=== PATIENT | female | born 1990 | race Caucasian/White ===

== ENCOUNTER → 2021-05-08 | Outpatient (CLI) | payer OTHER ==
[2021-05-10 17:12] LABS: HPV 16 Negative (Negative); HPV 18 Negative (Negative); HPV OTHER HR TYPES Negative (Negative)
== END | disposition home or self-care (01) ==
LOC: LAB SHORT 17:10
PROVIDERS: Obstetrics & Gynecology
DX: Z01.419 Encounter for gynecological examination (general) (routine) without abnormal findings (principal)
CPT/HCPCS: 87624; G0123

== ENCOUNTER 2023-02-05 20:33 | Observation (INO) | payer BC, OTHER ==
[~2023-02-05] VITALS: Ht 157.5 cm; Wt 49.9 kg
[2023-02-05 21:08] LABS: BASOPHILS ABSOLUTE AUTO 0.04 K/mm3 (0.00-0.23); BASOPHILS PERCENT AUTO 0 % (0-2); EOSINOPHILS ABSOLUTE AUTO 0.27 K/mm3 (0.00-0.68); EOSINOPHILS PERCENT AUTO 3 % (0-6); Hematocrit 35.5 % (33.0-51.0); Hemoglobin 12.9 g/dL (11.5-16.0); IMMATURE GRAN ABSOLUTE AUTO 0.03 K/mm3 (0.00-0.10); IMMATURE GRAN PERCENT AUTO 0 % (0-1); LYMPHOCYTES ABSOLUTE AUTO 1.61 K/mm3 (0.84-5.20); LYMPHOCYTES PERCENT AUTO 16 % (21-46); MONOCYTES ABSOLUTE AUTO 0.44 K/mm3 (0.16-1.47); MONOCYTES PERCENT AUTO 4 % (4-13); Mean Corpuscular HGB 30.4 pg (26.0-34.0); Mean Corpuscular HGB Conc 36.3 g/dL (31.5-36.5); Mean Corpuscular Volume 84 fL (80-100); Mean Platelet Volume 9.9 fL (9.1-12.4); NEUTROPHILS ABSOLUTE AUTO 8.02 K/mm3 (1.96-9.15); NEUTROPHILS PERCENT AUTO 77 % (41-73); Platelet Count 251 K/mm3 (150-400); RDW Coefficient Variation 11.9 % (11.7-14.2); Red Blood Cell Count 4.25 M/mm3 (3.80-5.20); White Blood Cell Count 10.41 K/mm3 (4.00-11.30)
[2023-02-05 21:23] LABS: Alanine Aminotransfer (ALT/SGP 18 U/L (12-78); Albumin, Blood 3.9 g/dL (3.4-5.0); Albumin/Globulin Ratio 1.1 (0.8-1.8); Alk Phos 64 U/L (50-136); Anion Gap 4 mmol/L (6-16); Aspartate Aminotrans (AST/SGOT 11 U/L (12-37); Bilirubin, Total 1.2 mg/dL (0.1-1.0); Blood Urea Nitrogen 10 mg/dL (8-24); Bun/Creatinine Ratio 12.4 (12.0-20.0); CO2, Blood 26 mmol/L (21-32); Calcium, Blood 8.5 mg/dL (8.5-10.1); Chloride, Blood 109 mmol/L (98-108); Creatinine, Blood 0.81 mg/dL (0.40-1.00); Globulin, Blood 3.6 g/dL (2.2-4.0); Glomerular Filtration Rate 98 (60-); Glucose, Blood 117 mg/dL (70-99); Potassium, Blood 4.6 mmol/L (3.5-5.5); Sodium, Blood 139 mmol/L (136-145); Total Protein, Blood 7.5 g/dL (6.4-8.2)
[2023-02-05 23:33] LABS: Source, Urine Clean Catch
[2023-02-05 23:41] LABS: Bilirubin, Urine Neg (Neg); Blood, Urine 5+ (Neg); Glucose Qualitative, Urine Neg (Neg); Ketones, Urine 1+ (Neg); Leukocyte Esterase, Urine 2+ (Neg); Nitrite, Urine Neg (Neg); Protein, Urine 2+ (Neg); Urobilinogen, Urine NORM (Normal)
[2023-02-05 23:44] LABS: Beta HCG, Quantitative, Serum <1 mIU/mL (0-3)
[2023-02-05 23:48] LABS: Appearance, Urine Turbid (Clear); Color, Urine Amber (P-Yellow)
[2023-02-05 23:51] LABS: Bacteria Mod /hpf; Red Blood Cells, Urine 50-100 /hpf (0-2); Squamous Epithelial Cells Few /hpf (Few)
[2023-02-06] VITALS (13 sets, daily range): BP systolic 96–137; BP diastolic 45–83
--- NOTE | 2023-02-06 05:06 | NUR ---
PT NEW ADMIT FROM ER. PT A/O, VSS, PT TX SELF TO BED, DENIED DIZZINESS WHEN UP. PT REP ABD PAIN 04/20, REP ABHISHEK AT THIS TIME, DECLINES NEED FOR PAIN MEDS. PT REP OC N/V, DENIES AT THIS TIME. PT ORIENTED TO ROOM/CALL LIGHT AND NPO STATUS. AWAITING SURGERY PLANS.
--- NOTE | 2023-02-06 13:35 | NUR ---
INTO [facility] VIA GURNEY FROM SURG FLOOR. History, Chart, Medications and Allergies reviewed before start of procedure.Patient confirms NPO status and agrees with scheduled surgery. Surgical site prepped with 2% Chlorhexidine cloth wipe. Lungs clear T/O to Auscultation.IV TO RIGHT AC PRESENT UPON ARRIVAL INTO [facility].PATENT FLUSHES EASILY. INFUSING CURRENTLY
--- NOTE | 2023-02-06 14:41 | NUR ---
02/06/23 1441 Massiel Nelson PT ON SCHEDULED ANTIBIOITCS
--- NOTE | 2023-02-06 16:10 | NUR ---
POST OP ARRIVAL TO SURGICAL FLOOR DROWSY, BUT ORIENTED. ABD SOFT w/ 4 LAP SITES COVERED w/ STERI STRIPS. DENIES N/V SO SIPS & SNACKS GIVEN. PAIN IS TOLERABLE. VSS.
--- NOTE | 2023-02-06 16:42 | NUR ---
shift summary- pt is a/o, plesant and cooperative. she went for a lap kerry this afternoon. she started her period this morning. upon arrival from surgery she was eating and drinking well. minimal pain. her bed is in the low position and call light is witin reach.
[2023-02-07 03:19] VITALS: BP 94/61
--- NOTE | 2023-02-07 06:39 | NUR ---
POD 1 S/P LAP ARAVIND. PT VSS T/O NIGHT. INCISIONS CDI. PAIN MGD W/2 NORCO AND TORADOL W/REP RELIEF. PT ABHISHEK REG PO, DENIED N/V, REP NO FLATUS YET. PT AMB INP IN ROOM, ABHISHEK WELL.
[2023-02-07 07:28] VITALS: BP 104/61
[2023-02-07] MEDS ORDERED: Norco 5-325 Ta1 EACH PO ×2 (13:50)
--- NOTE | 2023-02-07 14:07 | NUR ---
DISCHARGE EATING, DRINKING, VOIDING, & PASSING GAS. FEELS COMFORTABLE w/ DC. SCRIPT GIVEN. ESCORTED OUT VIA WC.
[2023-02-08] MEDS ORDERED: ONDA4ODT MM (04:06)
== END 2023-02-07 14:07 | disposition home or self-care (01) ==
LOC: ER 20:33 → ERHOLD 20:34 → SURS 20:34
PROVIDERS: Emergency Medicine; Surgery; ADMIT Surgery
PROC: 0FT44ZZ Resection of Gallbladder, Percutaneous Endoscopic Approach (ICD-10-PCS; principal; 2023-02-06 14:00)
DX: K80.64 Calculus of gallbladder and bile duct with chronic cholecystitis without obstruction (principal)
CPT/HCPCS: 74300; 76705; 80053; 81001; 81025; 83690; 84702; 85025; 87086; 88304; 96361; 96365; 96375; 96376; 99285-25; A9270; C1729; G0378; J0694; J1100; J1170; J1885; J2250; J2405; J2704; J2710; J3010; J3480; J7030; J7120

== ENCOUNTER 2023-02-08 00:33 | Emergency (ER) | payer BC, OTHER ==
[~2023-02-08] VITALS: Ht 157.5 cm; Wt 49.9 kg
[~2023-02-08 00:33] MED LIST: Norco 5-325 Ta1 EACH PO
[2023-02-08 03:07] LABS: BASOPHILS ABSOLUTE AUTO 0.02 K/mm3 (0.00-0.23); BASOPHILS PERCENT AUTO 0 % (0-2); EOSINOPHILS ABSOLUTE AUTO 0.03 K/mm3 (0.00-0.68); EOSINOPHILS PERCENT AUTO 0 % (0-6); Hematocrit 34.4 % (33.0-51.0); Hemoglobin 12.3 g/dL (11.5-16.0); IMMATURE GRAN ABSOLUTE AUTO 0.06 K/mm3 (0.00-0.10); IMMATURE GRAN PERCENT AUTO 1 % (0-1); LYMPHOCYTES ABSOLUTE AUTO 0.83 K/mm3 (0.84-5.20); LYMPHOCYTES PERCENT AUTO 6 % (21-46); MONOCYTES ABSOLUTE AUTO 0.64 K/mm3 (0.16-1.47); MONOCYTES PERCENT AUTO 5 % (4-13); Mean Corpuscular HGB 30.5 pg (26.0-34.0); Mean Corpuscular HGB Conc 35.8 g/dL (31.5-36.5); Mean Corpuscular Volume 85 fL (80-100); Mean Platelet Volume 10.1 fL (9.1-12.4); NEUTROPHILS ABSOLUTE AUTO 11.69 K/mm3 (1.96-9.15); NEUTROPHILS PERCENT AUTO 88 % (41-73); Platelet Count 226 K/mm3 (150-400); RDW Coefficient Variation 12.1 % (11.7-14.2); RDW Standard Deviation 37.4 fL (35.1-46.3); Red Blood Cell Count 4.03 M/mm3 (3.80-5.20); White Blood Cell Count 13.27 K/mm3 (4.00-11.30)
[2023-02-08 03:24] LABS: Albumin, Blood 3.6 g/dL (3.4-5.0); Albumin/Globulin Ratio 1.1 (0.8-1.8); Bilirubin, Total 0.8 mg/dL (0.1-1.0); Bun/Creatinine Ratio 15.5 (12.0-20.0); Calcium, Blood 8.5 mg/dL (8.5-10.1); Creatinine, Blood 0.58 mg/dL (0.40-1.00); Globulin, Blood 3.2 g/dL (2.2-4.0); Potassium, Blood 3.8 mmol/L (3.5-5.5); Total Protein, Blood 6.8 g/dL (6.4-8.2)
[2023-02-08 04:05] VITALS: BP 108/69
[2023-02-08] MEDS ORDERED: ONDA4ODT MM (04:06)
== END 2023-02-08 04:29 | disposition home or self-care (01) ==
LOC: ER 00:33
PROVIDERS: Emergency Medicine
DX: R10.84 Generalized abdominal pain (principal); G89.18 Other acute postprocedural pain; K91.0 Vomiting following gastrointestinal surgery; E86.0 Dehydration; Z90.49 Acquired absence of other specified parts of digestive tract
CPT/HCPCS: 74019; 80053; 85025; 96361; 96374; 99283-25; A9270; J1885; J7030